=== PATIENT | male | born 1945 | race Caucasian/White ===

== ENCOUNTER 2023-09-27 08:14 | Outpatient (RCR) | payer MEDICARE, OTHER, SELFPAY ==
[2023-09-27] MEDS: SODIUM BICARBONATE 1150 MEQ IV (08:47)
[2023-09-27 09:06] VITALS: BP 158/78
== END 2023-10-18 23:59 | disposition home or self-care (01) ==
LOC: OID 08:14
PROVIDERS: ATTENDING PHYSICIAN Physician Assistant
DX: I71.43 Infrarenal abdominal aortic aneurysm, without rupture (principal); Z92.89 Personal history of other medical treatment
CPT/HCPCS: 74174; 96360; 96361; Q9967

== ENCOUNTER 2023-10-26 10:43 | Emergency (ER) | payer MEDICARE, OTHER, SELFPAY ==
[2023-10-26 10:50] VITALS: BP 170/93
--- NOTE | 2023-10-26 11:51 | ED.GENMED ---
History of Present Illness
<Jeanie Sterling PA-C - Last Filed: 10/26/23 18:36>
General
Chief Complaint: Blood Pressure Problem
Source: patient and spouse
Exam Limitations: none
Time Seen by Provider: 10/26/23 11:10
Nursing documentation reviewed up to this point in time: agreed with
Travel History
Have you had any contact with someone who has COVID-19?: No
Do you have any symptoms of coronavirus? Fever > 100 degrees, chills, cough, shortness of breath, sore throat, loss of taste or smell, muscle aches, or headache?: No
History of Present Illness
History of Present Illness:
Patient is a 78 y.o male with hx HTN, COPD, AAA presenting for evaluation of high blood pressure readings at home. Patient had recent abdominal aortic aneurysm stents placed due to increasing diameter. This procedure was performed in 08/2023
without any complications. He had follow-up vascular surgeon on Monday where he was found to have some elevated blood pressure readings. He continued to monitor blood pressure at home and it has continued to rise up and he was receiving readings
as high as 180s over 100s which prompted his visit to the emergency department. He did double his dose of ramipril earlier today. He is denying any chest pain, shortness of breath, abdominal pain, back pain. He has no dizziness, visual changes,
weakness.
Phy Exam
<Jeanie Sterling PA-C - Last Filed: 10/26/23 18:36>
Physical Exam
Physical Exam:
General: Well appearing and non-toxic
Vitals: Hypertensive, otherwise vital signs stable
HEENT: Atraumatic, normocephalic; pupils equal round and reactive to light bilaterally, extraocular muscles intact, protecting airway
Neck: appears supple, no JVD, no tenderness to carotid bilaterally
CV: Regular rate and rhythm, heart sounds normal, no evidence of cyanosis
Resp: No evidence of respiratory distress, lungs clear, no accessory muscle use
Abd: Soft, nontender, non-distended; well healing surgical scar
Extremities: No deformities, no evidence of cyanosis or edema
Neuro: alert and oriented to person, place, time; speech normal, no focal motor deficits, no focal neurological deficits, CN II-XII intact
Psych: Normal affect
Skin: Intact, no rashes
Course
<Jeanie Sterling PA-C - Last Filed: 10/26/23 18:36>
Orders/Labs/Results
Orders:
Orders
10/26/23 12:02
HydrALAZINE [Apresoline] 10 mg IV NOW STA
10/26/23 12:03
Electrocardiogram (*1) Urgent
Reason for Study: Hypertension, Benign
EKG- Treatment ONCE
10/26/23 12:28
Complete Blood Count/With Diff Urgent
Comprehensive Metabolic Panel Urgent
Abnormal Lab Results
10/26/23
12:28
RBC 3.95 L 10^6/uL
(4.70-6.10)
Hgb 12.9 L g/dL
(13.0-18.0)
Hct 37.6 L %
(39.0-52.0)
MCV 95.2 H fL
(80.0-94.0)
MCH 32.7 H pg
(27.0-31.0)
RDW 14.6 H %
(11.5-14.5)
Absolute Monos (auto) 0.7 H 10^3/uL
(0.1-0.6)
Lymphocytes % 16.9 L %
(20.5-51.1)
Monocytes % 10.5 H %
(1.7-9.3)
Eosinophils % 7.1 H %
(0-6)
Creatinine 1.4 H mg/dL
(0.7-1.3)
10/26/23 12:28
10/26/23 12:28
Vital Signs
Initial and Last Documented VS:
Initial Vital Signs
Temp Pulse Resp BP Pulse Ox
97.3 F 76 18 170/93 99
10/26/23 10:50 10/26/23 10:50 10/26/23 10:50 10/26/23 10:50 10/26/23 10:50
Last Documented Vital Signs
Temp Pulse Resp BP Pulse Ox
97.3 F 82 16 139/98 100
10/26/23 10:50 10/26/23 13:42 10/26/23 12:25 10/26/23 14:35 10/26/23 13:42
<Ian Merino, DO - Last Filed: 10/26/23 12:07>
Orders/Labs/Results
Orders:
Orders
10/26/23 12:02
HydrALAZINE [Apresoline] 10 mg IV NOW STA
10/26/23 12:03
Electrocardiogram (*1) Urgent
Reason for Study: Hypertension, Benign
EKG- Treatment ONCE
10/26/23 12:28
Complete Blood Count/With Diff Urgent
Comprehensive Metabolic Panel Urgent
Abnormal Lab Results
10/26/23
12:28
RBC 3.95 L 10^6/uL
(4.70-6.10)
Hgb 12.9 L g/dL
(13.0-18.0)
Hct 37.6 L %
(39.0-52.0)
MCV 95.2 H fL
(80.0-94.0)
MCH 32.7 H pg
(27.0-31.0)
RDW 14.6 H %
(11.5-14.5)
Absolute Monos (auto) 0.7 H 10^3/uL
(0.1-0.6)
Lymphocytes % 16.9 L %
(20.5-51.1)
Monocytes % 10.5 H %
(1.7-9.3)
Eosinophils % 7.1 H %
(0-6)
Creatinine 1.4 H mg/dL
(0.7-1.3)
10/26/23 12:28
10/26/23 12:28
Vital Signs
Initial and Last Documented VS:
Initial Vital Signs
Temp Pulse Resp BP Pulse Ox
97.3 F 76 18 170/93 99
10/26/23 10:50 10/26/23 10:50 10/26/23 10:50 10/26/23 10:50 10/26/23 10:50
Last Documented Vital Signs
Temp Pulse Resp BP Pulse Ox
97.3 F 82 16 139/98 100
10/26/23 10:50 10/26/23 13:42 10/26/23 12:25 10/26/23 14:35 10/26/23 13:42
<Jeanie Sterling PA-C - Last Filed: 10/26/23 18:36>
MDM/Problems Addressed
Differential Diagnosis Includes:
asymptomatic hypertension, hypertensive urgency, hypertensive emergency
MDM/Problems Addressed:
Patient is 78 year old male presenting for high blood pressure readings at home. He had recent AAA stents place in 09/09. He is asymptomatic and receiving BP measurements as high as 180s/100s and doubled his ramipril today. Patient is very well
appearing. Hypertensive to 173/93 on arrival. Remains asymptomatic. Physical exam as documented above.
Patient is asymptomatic with blood pressure in upper 170s�180s over 90s. Will get basic labs, check EKG. Will give 10 mg IV hydralazine. Will reassess
CBC and CMP without any clinically significant abnormalities. Blood pressure decreased to 115/83 following IV hydralazine. He remains completely asymptomatic.
No indication for admission or further testing. He is stable for discharge with close return precautions, primary care follow-up. Instructed patient to double ramipril dose and will send prescription for 10 mg p.o. hydralazine to take as needed if
BP remains elevated midday. Lengthy discussion with patient and patient's regarding return precautions and concerning symptoms associated with hypertension. They will follow-up with primary care promptly for further evaluation/management of
hypertension. Both patient are comfortable this plan. All questions answered.
Chronic conditions affecting care:
HTN, AAA, COPD, BPH
Acute Exacerbation and/or Progression of Chronic Illness:
Asymptomatic hypertension
<Jeanie Sterling PA-C - Last Filed: 10/26/23 18:36>
*EKG
Interpreted by ED Provider?: Yes
EKG Intrepretation Date: 10/26/23
Interpretation: abnormal
Comparison EKG: changes noted
Heart Rate: 69
Rate: normal
Rhythm: sinus
[place]: normal axis
Interval: normal interval
QRS Pattern: right bundle branch block
Ischemia: non-specific ST changes
*Packaging Sales Representative Interpretation
Rate: Packaging Sales Representative- N/A
*Critical Care Note
Total Time (30-74mins, 75-104mins- exclusive of procedures): Not Applicable
ED Attending Note
<Jeanie Sterling PA-C - Last Filed: 10/26/23 18:36>
-
Portions of this chart may have been created with voice recognition software.� Occasional wrong word or��sound alike� substitutions may have occurred due to the inherent limitations of voice recognition software.
<Ian Merino DO - Last Filed: 10/26/23 12:07>
ED Attending Note
Patient seen and examined by attending physician: Yes
I performed the substantive portion of visit, reviewed & personally made and approve the management plan that is documented in note by myself or BENIGNO.: Yes
ED Attending Note:
I have seen and evaluated the patient with a [id number] encounter. I have spoken to the advance practicer provider and involved in the medical history, the physical exam, medical decision making.
Evaluation and management service: agree unless noted differently below.
Results interpretation: agree unless noted differently below.
Focused HPI: 78-year-old male presenting for evaluation of asymptomatic hypertension. Patient had recent abdominal aorta aneurysm graft placed. This was due to to an asymptomatic increase in the diameter. Patient had a recent follow-up with
vascular surgery and his blood pressure was elevated. Patient has been monitoring his blood pressure and noted that it is increasing upwards. He took an extra dose of ramipril and came to the emergency department for evaluation
Physical exam: Sitting in bed comfortably. Heart regular rate and rhythm. No abdominal tenderness
Medical Decision Making: Will obtain blood work to rule out any evidence of endorgan damage. Patient already doubled his ramipril. Discussed taking his hydrochlorothiazide as prescribed, doubling his ramipril and will add hydralazine as needed if
blood pressure parameters greater than 150/90. This is to buy time until he and his PCP can figure out for appropriate blood pressure management
Discharge Plan
Departure
Patient Disposition: Home (Routine Discharge)
Date of Disposition: 10/26/23
Time of Disposition: 14:48
Patient with high blood pressure during this ER visit?: Yes
Condition: Good
Covid-19: Not Applicable
Discharge Problem:
Asymptomatic hypertension
Instructions: High Blood Pressure (DC), High blood pressure emergencies, BLOOD PRESSURE
Prescriptions:
New
hydralazine 10 mg tablet
10 mg PO DAILYPRN PRN (Reason: hypertension) Qty: 30 0RF
Rx Instructions:
take 10mg mid-day as needed for blood pressure readings > 150 / 90
No Action
atorvastatin 10 mg Tablet
10 mg PO DAILY
famotidine [Pepcid] 20 mg Tablet
20 mg PO HS
tamsulosin [Flomax] 0.4 mg Capsule
0.4 mg PO HS
methylphenidate HCl 20 mg Tablet Extended Release
20 mg PO BID
hydrochlorothiazide 25 mg Tablet
25 mg PO DAILY
coenzyme Q10 [CoQ-10] 100 mg Capsule
100 mg PO DAILY
ramipril 5 mg Tablet
5 mg PO DAILY
cholecalciferol (vitamin D3) [Vitamin D3] 50 mcg (2,000 unit) Tablet
50 mcg PO HS
Trelegy Ellipta 100-62.5-25 mcg Blister With Device
1 inh INHALATION DAILY
Unisom (doxylamine) 25 mg Tablet
25 mg PO HS PRN (Reason: insomnia)
clopidogrel 75 mg Tablet
75 mg PO DAILY Qty: 90 0RF
pantoprazole 40 mg Tablet,Delayed Release (Dr/Ec)
40 mg PO DAILY Qty: 60 0RF
aspirin [Children's Aspirin] 81 mg Tablet,Chewable
81 mg PO DAILY Qty: 90 0RF
docusate sodium 100 mg Capsule
100 mg PO BID Qty: 30 0RF
albuterol sulfate 2.5 mg /3 mL (0.083 %) Solution For Nebulization
1 mg inhalation DAILY PRN (Reason: sob)
Referrals:
UNKNOWN - PT DOES,NOT KNOW [Family Provider] -
Activity Restrictions/Additional Instructions:
- Return to the emergency department with any chest pain, shortness of breath, severe headache, severe back pain, severe abdominal pain, dizziness/lightheadedness, changes in vision, numbness/weakness, worsening current symptoms, or any other
concerns
-As discussed - we recommend that you double your prescription for ramipril.
-Your prescription has been sent to your pharmacy. You should check your blood pressure daily. If blood pressure readings greater than 150 or greater than 90 you can take 10mg of hydralazine.
-You should follow-up with primary care for further evaluation/management of your high blood pressure in 1 week.
Interventions
Interventions:
*Risk Screen - Suicide Last Done: 10/26/23 11:30
*General Assessment Last Done: 10/26/23 11:30
*Neglect/Abuse Screening Last Done: 10/26/23 11:30
ED- Fall Risk Assessment Last Done: 10/26/23 11:30
*ED COVID-19 Vaccine History Last Done: 10/26/23 11:30
*Nursing Disposition Last Done: 10/26/23 14:57
ED- Cardiac Assessment Last Done: 10/26/23 11:30
ED- Neurological Assessment Last Done: 10/26/23 11:30
ED- Pulmonary Assessment Last Done: 10/26/23 11:30
Discharge Date and Time
Discharge Date/Time: 10/26/23 14:58
[2023-10-26 12:25] VITALS: BP 158/91
[2023-10-26] MEDS: APRESOLINE 10 MG IV (12:35)
[2023-10-26 12:39] LABS: % Basophils 0.9 % (0-2); % Eosinophils 7.1 % (0-6); % Immature Granulocytes 0.3 % (0-0.5); % Lymphocytes 16.9 % (20.5-51.1); % Monocytes 10.5 % (1.7-9.3); % Neutrophils 64.3 % (42.2-75.2); Absolute Basophils 0.1 10^3/uL (0-0.2); Absolute Eosinophils 0.5 10^3/uL (0-0.7); Absolute Lymphocytes 1.2 10^3/uL (1.2-3.4); Absolute Monocytes 0.7 10^3/uL (0.1-0.6); Absolute Neutrophils 4.4 10^3/uL (1.4-6.5); Hematocrit 37.6 % (39.0-52.0); Hemoglobin 12.9 g/dL (13.0-18.0); Mean Corp Hgb Conc. 34.3 g/dL (33.0-37.0); Mean Corpuscular Hgb 32.7 pg (27.0-31.0); Mean Corpuscular Volume 95.2 fL (80.0-94.0); Nucleated Red Blood Cells % 0 % (-); Red Blood Cell Count 3.95 10^6/uL (4.70-6.10); Red Cell Dist. Width 14.6 % (11.5-14.5); White Blood Cell Count 6.9 10^3/uL (4.8-10.8)
[2023-10-26 12:51] LABS: ALT (SGPT) 19 U/L (0-50); AST (SGOT) 35 U/L (17-59); Albumin 4.1 g/dl (3.5-5.0); Alkaline Phosphatase 71 U/L (38-126); Blood Urea Nitrogen 19 mg/dl (9-20); Calcium 9.1 mg/dl (8.4-10.2); Carbon Dioxide 29 mmol/L (22-30); Chloride 101 mmol/L (98-107); Glucose 95 mg/dl (70-99); Potassium 3.9 mmol/L (3.5-5.1); Sodium 135 mmol/L (135-145); Total Bilirubin 0.8 mg/dl (0.2-1.3); Total Protein 6.8 g/dl (6.3-8.2); eGFR 51.13
[2023-10-26 13:37] LABS: Mean Platelet Volume 9.6 fL (7.4-10.4); Platelet Count 152 10^3/uL (130-400)
[2023-10-26 13:42] VITALS: BP 115/83
[2023-10-26 14:35] VITALS: BP 139/98
== END 2023-10-26 14:58 | disposition home or self-care (01) ==
LOC: EMR 10:43
PROVIDERS: Physician Assistant; EMERGENCY PHYSICIAN Student in an Organized Health Care Education/Training Program
DX: I10 Essential (primary) hypertension (principal); I71.40 Abdominal aortic aneurysm, without rupture, unspecified; J44.9 Chronic obstructive pulmonary disease, unspecified; N40.0 Benign prostatic hyperplasia without lower urinary tract symptoms; Z86.79 Personal history of other diseases of the circulatory system
CPT/HCPCS: 99283; 96374; 80053; 85025; 93005

== ENCOUNTER → 2023-11-14 16:13 | Outpatient (REF) | payer MEDICARE, OTHER, SELFPAY | LOC: RAD 16:13 | PROVIDERS: ATTENDING PHYSICIAN Physician Assistant | DX: J18.9 Pneumonia, unspecified organism (principal) | CPT/HCPCS: 71250 ==

== ENCOUNTER → 2024-02-28 09:26 | Outpatient (REF) | payer MEDICARE, OTHER, SELFPAY | LOC: RAD 09:26 | PROVIDERS: ATTENDING PHYSICIAN Physician Assistant | DX: R91.8 Other nonspecific abnormal finding of lung field (principal) | CPT/HCPCS: 71250 ==

== ENCOUNTER → 2024-04-11 10:31 | Outpatient (REF) | payer MEDICARE, OTHER, SELFPAY | LOC: RAD 10:31 | PROVIDERS: ATTENDING PHYSICIAN Surgery Vascular Surgery | DX: I71.43 Infrarenal abdominal aortic aneurysm, without rupture (principal) | CPT/HCPCS: 76770; 93975 ==

== ENCOUNTER → 2024-09-06 10:26 | Outpatient (REF) | payer MEDICARE, OTHER, SELFPAY | LOC: HWRAD 10:26 | PROVIDERS: ATTENDING PHYSICIAN Internal Medicine Pulmonary Disease | DX: J44.9 Chronic obstructive pulmonary disease, unspecified (principal) | CPT/HCPCS: 71250 ==

== ENCOUNTER → 2024-10-21 11:08 | Outpatient (REF) | payer MEDICARE, OTHER, SELFPAY ==
[2024-10-21 12:22] LABS: Blood Urea Nitrogen 26 mg/dl (9-20); Calcium 9.6 mg/dl (8.4-10.2); Carbon Dioxide 30 mmol/L (22-30); Chloride 98 mmol/L (98-107); Glucose 95 mg/dl (70-99); Sodium 137 mmol/L (135-145); eGFR 50.81
== END ==
LOC: REG 11:08
PROVIDERS: ATTENDING PHYSICIAN Physician Assistant
DX: I71.43 Infrarenal abdominal aortic aneurysm, without rupture (principal)
CPT/HCPCS: 36415; 80048

== ENCOUNTER → 2024-10-30 10:48 | Outpatient (REF) | payer MEDICARE, OTHER, SELFPAY | LOC: RAD 10:48 | PROVIDERS: ATTENDING PHYSICIAN Physician Assistant | DX: I71.43 Infrarenal abdominal aortic aneurysm, without rupture (principal) | CPT/HCPCS: 76770 ==

== ENCOUNTER 2024-11-07 07:38 | Outpatient (RCR) | payer MEDICARE, OTHER, SELFPAY ==
[2024-11-07 07:50] VITALS: BP 164/81
[2024-11-07] MEDS: SODIUM BICARBONATE 1150 MEQ IV (08:01)
== END 2024-11-08 08:28 | disposition home or self-care (01) ==
LOC: OID 07:38
PROVIDERS: ATTENDING PHYSICIAN Surgery Vascular Surgery
DX: I71.43 Infrarenal abdominal aortic aneurysm, without rupture (principal)
CPT/HCPCS: 74174; 96365; 96366; Q9967

== ENCOUNTER → 2024-11-23 07:42 | Outpatient (REF) | payer MEDICARE, OTHER, SELFPAY ==
[2024-11-23 08:42] LABS: % Basophils 0.7 % (0-2); % Eosinophils 9.1 % (0-6); % Immature Granulocytes 0.1 % (0-0.5); % Lymphocytes 21.7 % (20.5-51.1); % Monocytes 10.7 % (1.7-9.3); % Neutrophils 57.7 % (42.2-75.2); Absolute Basophils 0.1 10^3/uL (0-0.2); Absolute Eosinophils 0.7 10^3/uL (0-0.7); Absolute Lymphocytes 1.6 10^3/uL (1.2-3.4); Absolute Monocytes 0.8 10^3/uL (0.1-0.6); Absolute Neutrophils 4.3 10^3/uL (1.4-6.5); Hemoglobin 13.5 g/dL (13.0-18.0); Mean Corp Hgb Conc. 34.6 g/dL (33.0-37.0); Mean Corpuscular Hgb 32.5 pg (27.0-31.0); Mean Platelet Volume 9.7 fL (7.4-10.4); Nucleated Red Blood Cells % 0 % (-); Platelet Count 173 10^3/uL (130-400); Red Blood Cell Count 4.15 10^6/uL (4.70-6.10); Red Cell Dist. Width 13.8 % (11.5-14.5); White Blood Cell Count 7.5 10^3/uL (4.8-10.8)
[2024-11-23 09:10] LABS: ALT (SGPT) 27 U/L (0-50); AST (SGOT) 37 U/L (17-59); Albumin 4.6 g/dl (3.5-5.0); Alkaline Phosphatase 77 U/L (38-126); Blood Urea Nitrogen 29 mg/dl (9-20); Calcium 9.9 mg/dl (8.4-10.2); Carbon Dioxide 29 mmol/L (22-30); Chloride 99 mmol/L (98-107); Glucose 98 mg/dl (70-99); HDL Cholesterol 53 mg/dl; LDL Cholesterol, Calculated 63 mg/dl; Potassium 4.4 mmol/L (3.5-5.1); Sodium 137 mmol/L (135-145); Total Bilirubin 0.9 mg/dl (0.2-1.3); Total Cholesterol 133 mg/dl (50-199); Triglyceride 88 mg/dl (10-149); Very Low Density Lipoprotein 17 mg/dl (0-30); eGFR 46.77
[2024-11-23 09:30] LABS: TSH Reflex To Free T4 5.16 uIU/ml (0.47-4.68)
[2024-11-23 10:01] LABS: Free T4 0.91 ng/dl (0.78-2.19)
== END ==
LOC: REG 07:42
PROVIDERS: ATTENDING PHYSICIAN Internal Medicine Cardiovascular Disease
DX: I10 Essential (primary) hypertension (principal); Z76.89 Persons encountering health services in other specified circumstances; I71.43 Infrarenal abdominal aortic aneurysm, without rupture; Z87.891 Personal history of nicotine dependence; J44.9 Chronic obstructive pulmonary disease, unspecified; Z98.890 Other specified postprocedural states; Z86.79 Personal history of other diseases of the circulatory system; N18.31 Chronic kidney disease, stage 3a
CPT/HCPCS: 36415; 80053; 80061; 84439; 84443; 85025

== ENCOUNTER 2025-08-24 18:35 | Emergency (ER) | payer MEDICARE, OTHER, SELFPAY ==
[2025-08-24 18:42] VITALS: BP 147/97
[2025-08-24 19:06] VITALS: BP 156/91
[2025-08-24 19:10] VITALS: BMI 21.8
[2025-08-24] MEDS: TYLENOL 1000 MG PO (19:17)
[2025-08-24] MEDS: TAMIFLU 75 MG PO (20:24)
--- NOTE | 2025-08-24 20:49 | ED.GENMED ---
History of Present Illness
General
Chief Complaint: Breathing Problem
Source: patient and family
Exam Limitations: none
Time Seen by Provider: 08/24/25 18:57
History of Present Illness
History of Present Illness:
Note:
CHIEF COMPLAINT(S)
Flu-like symptoms and chest tightness.
HISTORY OF PRESENT ILLNESS
The patient is an 80-year-old male with a history of a past stroke who presents with flu-like symptoms that began gradually yesterday afternoon. The symptoms include cough, mild congestion, and fever. The patient also reports chest tightness that
started earlier this afternoon. He was initially evaluated at a [facility], where he was diagnosed with the flu and found to be COVID negative. Due to concerning oxygen levels, he was referred for further evaluation.
The patient reports no history of heart disease but is on medications, including Plavix, due to his stroke history. He has some difficulty finding words, which is attributed to his previous stroke. He denies feeling out of breath.
The patient expresses feelings of thirst but notes improvement in symptoms since arriving at the facility. He was given a DuoNeb treatment here, and Tamiflu treatment is discussed for his current flu symptoms.
PAST MEDICAL AND SURGICAL HISTORY
History of stroke with resulting word-finding difficulty.
CHRONIC MEDICAL CONDITIONS SIGNIFICANTLY AFFECTING CARE
Previous stroke.
SOCIAL DETERMINANTS AFFECTING HEALTH
Reports that the patient has previously smoked; quit 25 years ago. History of lung problems, specified as emphysema.
EXTERNAL RECORDS REVIEWED
The [facility] noted positive flu diagnosis and COVID-negative status. Oxygen saturation levels were concerning, prompting the referral.
REVIEW OF SYSTEMS
- General: Reports flu-like symptoms, including fever and mild chest tightness since yesterday.
- Respiratory: Reports cough and mild congestion.
- Cardiovascular: Reports chest tightness that began earlier today, with a history of past stroke.
- Neurological: Reports word-finding difficulty post-stroke.
PHYSICAL EXAM
General: Alert, no acute distress.
Skin: Warm, dry.
Head: Normocephalic, atraumatic.
Neck: Supple, trachea midline.
Eye Ears, nose, mouth, and throat: Oral mucosa moist.
Cardiovascular: Heart regular with mild tachycardia (rate 105).
Respiratory: Lungs clear to auscultation; non-labored respirations.
Gastrointestinal: Abdomen nondistended.
Back: Normal range of motion, normal alignment.
Musculoskeletal: Normal ROM, normal strength.
Neurological: Alert and oriented to person, place, time, and situation, exhibits word-finding difficulty which is baseline, no focal motor deficits.
Psychiatric: Cooperative, appropriate mood & affect.
PLAN
1. Initiate Tamiflu, 75 mg twice daily for five days, starting tonight.
2. Chest X-ray to evaluate for any lung infiltrates related to flu.
3. Monitor patient to ensure improvement in symptoms and oxygen saturation.
4. Coordinate care regarding his condition of [place] and discuss with hematology for further management.
5. Educate patient and family on medication regimen and follow-up care.
DIFFERENTIAL DIAGNOSIS
The Differential Diagnosis includes, in no particular order and is not limited to:
1. Influenza
2. Chronic Obstructive Pulmonary Disease exacerbation
3. Viral pneumonia
4. Asthma exacerbation
5. Acute bronchitis
6. Congestive heart failure
7. Acute coronary syndrome
8. Dementia with Lewy bodies
9. Transient ischemic attack
10. Pulmonary embolism
Disposition:
SUMMARY OF ENCOUNTER
The patient is an 80-year-old male with a history of chronic obstructive pulmonary disease (COPD) and a past stroke who presented for flu-like symptoms management. The patient was initially evaluated at an urgent care clinic with a positive flu
diagnosis. He was further evaluated due to concerning symptoms. In the emergency department, he was treated with Tamiflu (oseltamivir) and was prescribed a short burst of steroids due to his COPD history. His symptoms improved with acetaminophen,
and he was noted to have stable pulse oximetry at 96% and was not tachypneic nor experiencing shortness of breath.
DISPOSITION
Discharge.
ASSESSMENT
Acute influenza infection in the context of COPD.
EMERGENCY TREATMENTS ADMINISTERED
Oseltamivir (Tamiflu), Acetaminophen.
PLAN
The patient will continue with Tamiflu, start a short burst of steroids, and use albuterol at home. Follow-up with primary care provider (PCP) is recommended.
INDEPENDENT REVIEW OF LABS AND INTERPRETATION OF TESTS
My independent review of chest x-ray is negative.
PATIENT EDUCATION AND COUNSELING
Discussed the importance of medication adherence, inhaler use, and monitoring symptoms. The patient was advised to contact his PCP for follow-up care and to seek medical attention if symptoms worsen.
FOLLOW-UP INSTRUCTIONS
Follow up with primary care provider (PCP).
MEDICATION RECONCILIATION
1. Oseltamivir (Tamiflu): 75 mg twice daily.
2. Acetaminophen (Tylenol) as needed for fever.
3. Short burst of steroids for COPD exacerbation.
4. Albuterol for home use as needed.
MEDICAL DECISION MAKING
- Number and Complexity of Problems Addressed: Chronic conditions affecting care include a history of stroke and COPD. Differential Diagnosis includes Influenza, COPD exacerbation, Viral pneumonia, Asthma exacerbation, and Acute bronchitis.
- Data:
Category 1: My independent interpretation of the chest x-ray is negative.
- Risk: Prescription medication was prescribed. Care significantly affected by Social Determinants of Health: history of smoking and lung problems.
DIAGNOSIS
1. Influenza due to identified influenza virus, type A, with other respiratory manifestations (ICD-10: J10.1)
2. Chronic obstructive pulmonary disease with acute lower respiratory infection (ICD-10: J44.0)
Phy Exam
Physical Exam
Physical Exam:
.
Scores
Heart Failure Risk
Heart Failure Risk Score: Not Applicable
Course
Orders/Labs/Results
Orders:
Orders
08/24/25 19:15
Acetaminophen [Tylenol] 1,000 mg PO NOW STA
08/24/25 19:16
Acetaminophen [Tylenol] 1,000 mg .ROUTE .STK-MED ONE
08/24/25 19:55
Oseltamivir Phosphate [Tamiflu] 75 mg PO NOW STA
08/24/25 19:56
CR Chest - 2 Views Urgent
Comment:
Reason For Exam: cough, flu
Vital Signs
Initial and Last Documented VS:
Initial Vital Signs
Temp Pulse Resp BP Pulse Ox
99.5 F 106 26 147/97 92
08/24/25 18:42 08/24/25 18:42 08/24/25 18:42 08/24/25 18:42 08/24/25 18:42
Last Documented Vital Signs
Temp Pulse Resp BP Pulse Ox
101.4 F H 102 19 156/91 96
08/24/25 19:10 08/24/25 20:00 08/24/25 20:00 08/24/25 19:06 08/24/25 20:50
*Pulse Oximetry
SaO2: 96
Oxygen Mode of Delivery: Room air
Patient hypoxic: no
*Critical Care Note
Total Time (30-74mins, 75-104mins- exclusive of procedures): Not Applicable
ED Attending Note
-
Portions of this chart may have been created with voice recognition software.� Occasional wrong word or��sound alike� substitutions may have occurred due to the inherent limitations of voice recognition software.
Discharge Plan
Departure
Patient Disposition: Home (Routine Discharge)
Date of Disposition: 08/24/25
Time of Disposition: 20:49
Patient with high blood pressure during this ER visit?: Yes
Discharge Problem:
Influenza, COPD (chronic obstructive pulmonary disease)
Instructions: Flu, Exacerbation of COPD (DC)
Prescriptions:
New
prednisone 10 mg Tablet
See Rx Instructions .ROUTE .COMPLEX Qty: 30 0RF
Rx Instructions:
Take By Mouth:
40 mg daily x3 days, 30 mg daily x3 days,
20 mg daily x3 days, 10 mg daily x3 days.
oseltamivir [Tamiflu] 75 mg capsule
75 mg PO BID 5 Days Qty: 10 0RF
No Action
atorvastatin 10 mg Tablet
40 mg PO DAILY
methylphenidate HCl 20 mg Tablet Extended Release
20 mg PO BID
hydrochlorothiazide 25 mg Tablet
25 mg PO DAILY
coenzyme Q10 [CoQ-10] 100 mg Capsule
100 mg PO DAILY
ramipril 5 mg Tablet
10 mg PO DAILY
cholecalciferol (vitamin D3) [Vitamin D3] 50 mcg (2,000 unit) Tablet
50 mcg PO HS
Trelegy Ellipta 100-62.5-25 mcg Blister With Device
1 inh INHALATION DAILY
Unisom (doxylamine) 25 mg Tablet
25 mg PO HS PRN (Reason: insomnia)
clopidogrel 75 mg Tablet
75 mg PO DAILY Qty: 90 0RF
pantoprazole 40 mg Tablet,Delayed Release (Dr/Ec)
40 mg PO DAILY Qty: 60 0RF
docusate sodium 100 mg Capsule
100 mg PO BID Qty: 30 0RF
albuterol sulfate 2.5 mg /3 mL (0.083 %) Solution For Nebulization
1 mg inhalation DAILY PRN (Reason: sob)
hydralazine 10 mg tablet
10 mg PO DAILYPRN PRN (Reason: hypertension) Qty: 30 0RF
Rx Instructions:
take 10mg mid-day as needed for blood pressure readings > 150 / 90
amlodipine [Norvasc] 5 mg Tablet
5 mg PO HS
diphenhydramine HCl [Benadryl] 25 mg Capsule
25 mg PO HS
multivitamin
1 tab PO DAILY
Referrals:
Ryan Cabral DO [Family Provider, Internal Medicine]
Activity Restrictions/Additional Instructions:
Please use your albuterol every 4 hours. Return immediately for difficulty breathing, changes in mentation or any other concerns. Please see your doctor in the next 3 days for follow-up and reevaluation.
Interventions
Interventions:
*Risk Screen - Suicide Last Done: 08/24/25 18:42
*General Assessment Last Done: 08/24/25 18:42
*Neglect/Abuse Screening Last Done: 08/24/25 18:42
*ED COVID-19 Vaccine History Last Done: 08/24/25 21:05
*ED Influenza Vaccine History Last Done: 08/24/25 21:05
[facility] Fall Risk Assessment Tool Last Done: 08/24/25 21:05
*Nursing Disposition Last Done: 08/24/25 21:05
ED- Cardiac Assessment Last Done: 08/24/25 20:53
ED- Pulmonary Assessment Last Done: 08/24/25 20:53
Discharge Date and Time
Discharge Date/Time: 08/24/25 21:05
Print Language: THAI
== END 2025-08-24 21:05 | disposition home or self-care (01) ==
LOC: EMR 18:35
PROVIDERS: EMERGENCY PHYSICIAN Emergency Medicine; FAMILY PHYSICIAN Internal Medicine
DX: J10.1 Influenza due to other identified influenza virus with other respiratory manifestations (principal); J44.0 Chronic obstructive pulmonary disease with (acute) lower respiratory infection; J43.9 Emphysema, unspecified; Z86.73 Personal history of transient ischemic attack (TIA), and cerebral infarction without residual deficits; Z87.891 Personal history of nicotine dependence
CPT/HCPCS: 99283; 71046